=== PATIENT | female | born 1985 | race Caucasian/White ===

== ENCOUNTER 2017-03-14 15:07 | Emergency (ER) | payer SELFPAY ==
--- NOTE | 2017-03-14 15:47 | UC ---
Respiratory Complaint HPI - HPI Summary HPI Summary: 31 yo female with <24 hour hx of runny nose/fever/chills/cough/sore throat and severe myalgias no n/v/d no CP of SOB - History of Current Complaint Chief Complaint: UCGeneralIllness Stated Complaint: SORE THROAT,EAR PAIN,BODY ACHES Time Seen by Provider: 03/14/17 15:36 Hx Obtained From: Patient Hx Last Menstrual Period: Nexplanon Onset/Duration: Sudden Onset, Lasting Hours Timing: Constant Severity Initially: Moderate Severity Currently: Moderate Pain Intensity: 8 Pain Scale Used: 0-10 Numeric Character: Cough: Nonproductive Aggravating Factors: Nothing Alleviating Factors: Nothing Associated Signs And Symptoms: Positive: Fever, Chills, Nasal Congestion, Sinus Discomfort - Allergies/Home Medications Allergies/Adverse Reactions: Allergies Allergy/AdvReac Type Severity Reaction Status Date / Time No Known Allergies Allergy Verified 03/14/17 15:15 PMH/Surg Hx/FS Hx/Imm Hx Previously Healthy: Yes - Surgical History Surgical History: Yes Surgery Procedure, Year, and Place: right foot surgery at [facility] (tendon transfer) at age 14 yrs & AGE 17 - Family History Known Family History: Positive: Hypertension - Social History Alcohol Use: Weekly Alcohol Amount: 1-2 drinks/day Substance Use Type: None Smoking Status (MU): Heavy Every Day Tobacco Smoker Type: Cigarettes Amount Used/How Often: 1 ppd Length of Time of Smoking/Using Tobacco: 21 YEARS Have You Smoked in the Last Year: Yes - Immunization History Most Recent Influenza Vaccination: NONE 2016 Review of Systems Constitutional: Fever, Chills, Fatigue Skin: Negative Eyes: Negative ENT: Sore Throat, Nasal Discharge, Sinus Congestion Respiratory: Cough Cardiovascular: Negative Gastrointestinal: Negative Genitourinary: Negative Motor: Negative Neurovascular: Negative Musculoskeletal: Myalgia Neurological: Headache Psychological: Negative Is Patient Immunocompromised?: No All Other Systems Reviewed And Are Negative: Yes Physical Exam Triage Information Reviewed: Yes Appearance: Well-Appearing, No Pain Distress, Well-Nourished Vital Signs: Initial Vital Signs Temp 98 F 03/14/17 15:16 Pulse 89 03/14/17 15:16 Resp 16 03/14/17 15:16 BP 105/63 03/14/17 15:16 Pulse Ox 100 03/14/17 15:16 Vital Signs Reviewed: Yes Eyes: Positive: Conjunctiva Clear ENT: Positive: Hearing grossly normal, Pharyngeal erythema, Nasal congestion, Nasal drainage, TMs normal. Negative: Tonsillar swelling, Tonsillar exudate, Trismus, Muffled/hoarse voice Neck: Positive: Supple, Nontender, No Lymphadenopathy Respiratory: Positive: Lungs clear, Normal breath sounds, No respiratory distress Cardiovascular: Positive: RRR, No Murmur Musculoskeletal: Positive: ROM Intact, No Edema, Other: - surgical scars both legs Neurological: Positive: Alert Psychological Exam: Normal Skin Exam: Normal UC Diagnostic Evaluation - Laboratory Pertinent Lab Values Are: WNL - RS and RI negative O2 Sat by Pulse Oximetry: 100 - normal/ not hyhpoxic Respiratory Course/Dx - Differential Dx/Diagnosis Provider Diagnoses: acute bronchitis Discharge - Discharge Plan Condition: Stable Disposition: HOME Prescriptions: Amoxicillin PO (*) [Amoxicillin 875 MG (*)] 875 mg PO BID #14 tab Benzonatate CAP* [Tessalon CAP*] 100 - 200 mg PO TID PRN #28 cap PRN Reason: Cough Ibuprofen TAB* [Motrin TAB*] 600 mg PO Q6H PRN #40 tab PRN Reason: Pain Patient Education Materials: Acute Bronchitis (ED) Referrals: ANICETO Freire [Primary Care Provider] - 3 Days (if not better) Additional Instructions: to er for new or worsening symptoms
[2017-03-14 17:26] VITALS: BP 100/46
== END 2017-03-14 17:46 | disposition home or self-care (01) ==
LOC: UCCORT 15:07
DX: J20.9 Acute bronchitis, unspecified (principal); R09.81 Nasal congestion; F17.210 Nicotine dependence, cigarettes, uncomplicated
CPT/HCPCS: 87502; 87651; 99212; G0463

== ENCOUNTER 2017-05-01 10:39 | Emergency (ER) | payer SELFPAY ==
[2017-05-01 10:59] VITALS: BP 113/65
--- NOTE | 2017-05-01 11:22 | UC ---
Complaint Female HPI - HPI Summary HPI Summary: bad vaginal odor x 1 day. + vaginal discharge, pain no fever, no chills, - History Of Current Complaint Chief Complaint: UCGU Stated Complaint: PERSONAL Time Seen by Provider: 05/01/17 10:54 Hx Obtained From: Patient Hx Last Menstrual Period: 04/24/17 Onset/Duration: Gradual Onset, Lasting Days - 1, Still Present Timing: Constant Severity Initially: Moderate Severity Currently: Moderate Character: Cramping Alleviating Factor(s): Nothing Associated Signs And Symptoms: Positive: Vaginal Bleeding/Discharge, Vaginal Discharge. Negative: Back Pain, Nausea, Vomiting(# Of Episodes =), Genital Swelling, Genital Blisters, Retained Foregin Body (Specify) - Allergies/Home Medications Allergies/Adverse Reactions: Allergies Allergy/AdvReac Type Severity Reaction Status Date / Time No Known Allergies Allergy Verified 05/01/17 10:54 PMH/Surg Hx/FS Hx/Imm Hx Previously Healthy: Yes - Surgical History Surgical History: Yes Surgery Procedure, Year, and Place: right foot surgery at [facility] (tendon transfer) at age 14 yrs & AGE 17 - Family History Known Family History: Positive: Hypertension - Social History Alcohol Use: None Alcohol Amount: 1-2 drinks/day Substance Use Type: None Smoking Status (MU): Heavy Every Day Tobacco Smoker Type: Cigarettes Amount Used/How Often: 1 ppd Length of Time of Smoking/Using Tobacco: 21 YEARS Have You Smoked in the Last Year: Yes - Immunization History Most Recent Influenza Vaccination: NONE 2016 Review of Systems Constitutional: Negative Skin: Negative Eyes: Negative ENT: Negative Respiratory: Negative Cardiovascular: Negative Genitourinary: Vaginal/Penile Itching, Vaginal/Penile Discharge Is Patient Immunocompromised?: No All Other Systems Reviewed And Are Negative: Yes Physical Exam Triage Information Reviewed: Yes Appearance: Well-Appearing, No Pain Distress, Well-Nourished Vital Signs: Initial Vital Signs Temp 98 F 05/01/17 10:55 Pulse 86 05/01/17 10:55 Resp 14 05/01/17 10:55 BP 113/65 05/01/17 10:55 Pulse Ox 100 05/01/17 10:55 Vital Signs Reviewed: Yes Eyes: Positive: Conjunctiva Clear ENT: Positive: Normal ENT inspection, Hearing grossly normal, Pharynx normal Neck: Positive: Supple, Nontender, No Lymphadenopathy Respiratory: Positive: Chest non-tender, Lungs clear, Normal breath sounds Cardiovascular: Positive: RRR, No Murmur, Pulses Normal Abdomen Description: Positive: Nontender, Soft. Negative: CVA Tenderness (R), CVA Tenderness (L), Distended, Guarding Bowel Sounds: Positive: Present Skin Exam: Normal UC Physical Exam Vital Signs On Initial Exam: Initial Vitals Temp Pulse Resp BP Pulse Ox 98 F 86 14 113/65 100 05/01/17 10:55 05/01/17 10:55 05/01/17 10:55 05/01/17 10:55 05/01/17 10:55 - Genitalia Exam Female Genitourinary: Vagina without Blood/Discharge, Genitalia without Lesions/ Masses Complaint Female Dx - Differential Dx/Diagnosis Provider Diagnoses: vaginitis Discharge - Discharge Plan Condition: Stable Disposition: HOME Prescriptions: Metronidazole [Flagyl 500 MG TAB] 500 mg PO BID #14 tab Patient Education Materials: Bacterial Vaginosis (ED), Vaginitis (ED) Referrals: ANICETO Freire [Primary Care Provider] - 5 Days Additional Instructions: will check vaginal cultures call the office in 2 days for the results
[2017-05-01 14:25] LABS: Trichomonas Source Endocervical (Negative)
== END 2017-05-01 11:33 | disposition home or self-care (01) ==
LOC: UCCORT 10:39
DX: N76.0 Acute vaginitis (principal); F17.210 Nicotine dependence, cigarettes, uncomplicated
CPT/HCPCS: 81003; 87077; 87086; 87186; 87480; 87491; 87510; 87591; 87661; 99212; G0463

== ENCOUNTER 2017-05-31 16:48 | Emergency (ER) | payer MEDICAID ==
[2017-05-31 17:07] VITALS: BP 112/71
== END 2017-05-31 17:53 | disposition left against medical advice (07) ==
LOC: UCCORT 16:48
DX: N89.8 Other specified noninflammatory disorders of vagina (principal); L65.9 Nonscarring hair loss, unspecified; Z53.21 Procedure and treatment not carried out due to patient leaving prior to being seen by health care provider

== ENCOUNTER 2017-07-18 20:48 | Emergency (ER) | payer MEDICAID ==
--- OUTSIDE RECORDS SUMMARY | 2017-07-18 21:05 | XMS REPORT ---
:1985 External Reference #:[id number] Author Organization [facility] Address [address] [address] Phone [phone] Care Team Providers Name Role Phone Karla Sher FNP Primary Care Physician Unavailable Payers Type Date Identification Numbers Payment Provider Subscriber Commercial Policy Number: [id number] [employer] [employer] [facility] Liz Mcgee PayID: [id number] [address] [address] [place] [address] Problems Description No Information Social History Type Date Description Comments Occupation Unemployed ETOH Use Denies alcohol use Smoking Heavy tobacco smoker (more than 10 cigarettes/day) Allergies, Adverse Reactions, Alerts Date Description Reaction Status Severity Comments 12/19/2015 NKDA active Medications Medication Date Status Form Strength Qnty SIG Indications Ordering Provider Compression 03/28/ Active Misc 1unit 40-50 mmhg Bob Huff 2015 s compression maliha Flynn M.D. knee high Ibuprofen / Active Tablets 200mg 4 po as Unknown 0000 needed Wellbutrin SR / Active Tablets ER 200mg 1 by mouth Unknown 0000 12HR daily Hydroxyzine / Active Tablets 50mg 1 po at Unknown Pano 0000 bedtime prn Gabapentin / Active Capsules 300mg 1 by mouth Unknown 0000 three times a day Topiramate / Active Tablets 50mg 1 tab po Unknown 0000 twice a day Prazosin HCL 00/ Active Capsules 2mg 1 capsule Unknown 0000 every night at bedtime Melatonin / Active Capsules 10mg 3 tab by Unknown 0000 mouth at bedtime as needed for insomnia Bactrim DS 02/05/ Hx Tablets 800-160mg 30tab 1 by mouth M67.01 Bob 2016 Dewey s twice a day Gee 10/01Elsa Sandoval 2017 Bactrim DS 01/29/ Hx Tablets 800-160mg 30tab 1 by mouth M67.01 Bob 2016 - s twice a day Gee Lori 2015 Oxycodone HCL 01/07/ Hx Tablets 5mg 30tab 1 tab by Bob 2016 - s mouth every Gee, hours as M.D. 2017 needed Nortriptyline / Hx Capsules 25mg Unknown HCL - 2015 Gabapentin / Hx Capsules 100mg Unknown 0000 - 2015 Meloxicam / Hx Tablets 15mg Maverick 0000 - Amee 01/28/ MD 2015 Bupropion HCL / Hx Tablets ER 150mg Take Two Unknown ER (XL) 0000 - 24HR Tablets By 04/08/ Mouth Every 2016 Day Meloxicam / Hx Tablets 7.5mg Take One Unknown 0000 - Tablet By 04/08/ Mouth Twice 2017 A Day Topiramate / Hx Tablets 100mg 1 po qday Unknown - 2016 Prazosin HCL / Hx Capsules 1mg 1 po qday Unknown - 2016 Vital Signs Date Vital Result Comment 07/02/2017 Height 66 inches 5'6" Heart Rate 56 /min BP Systolic 104 mmHg BP Diastolic 68 mmHg Respiratory Rate 16 /min Body Temperature 98.3 F Pain Level 9 O2 % BldC Oximetry 98 % 04/16/2017 Height 66 inches 5'6" Weight 160.00 lb Heart Rate 76 /min BP Systolic Sitting 126 mmHg BP Diastolic Sitting 74 mmHg Respiratory Rate 16 /min Pain Level 9 worse at night BMI (Body Mass Index) 25.8 kg/m2 04/09/2017 Height 66 inches 5'6" Heart Rate 72 /min BP Systolic Sitting 100 mmHg BP Diastolic Sitting 68 mmHg Respiratory Rate 20 /min Pain Level 7 O2 % BldC Oximetry 98 % 10/02/2016 Height 66 inches 5'6" Weight 190.00 lb Heart Rate 68 /min BP Systolic Sitting 114 mmHg BP Diastolic Sitting 72 mmHg Respiratory Rate 16 /min Pain Level 0 BMI (Body Mass Index) 30.7 kg/m2 07/17/2016 Height 66 inches 5'6" Weight 190.00 lb BMI (Body Mass Index) 30.7 kg/m2 05/29/2016 Height 66 inches 5'6" Weight 190.00 lb BP Systolic Sitting 108 mmHg BP Diastolic Sitting 68 mmHg Pain Level 9 BMI (Body Mass Index) 30.7 kg/m2 03/12/2016 Height 66 inches 5'6" Weight 190.00 lb Heart Rate 74 /min BP Systolic 124 mmHg BP Diastolic 66 mmHg Pain Level 8 BMI (Body Mass Index) 30.7 kg/m2 02/20/2016 Height 66 inches 5'6" Weight 190.00 lb Heart Rate 78 /min BP Systolic 122 mmHg BP Diastolic 64 mmHg Pain Level 8 BMI (Body Mass Index) 30.7 kg/m2 02/14/2016 Height 66 inches 5'6" Weight 190.00 lb BMI (Body Mass Index) 30.7 kg/m2 02/13/2016 Weight 190.00 lb Heart Rate 74 /min Respiratory Rate 16 /min 02/09/2016 Weight 185.00 lb 02/06/2016 Weight 185.00 lb Heart Rate 76 /min BP Systolic Sitting 122 mmHg BP Diastolic Sitting 76 mmHg 01/30/2016 Height 66 inches 5'6" Weight 185.00 lb BP Systolic Sitting 120 mmHg BP Diastolic Sitting 70 mmHg BMI (Body Mass Index) 29.9 kg/m2 01/22/2016 Height 66 inches 5'6" Weight 190.00 lb Pain Level 3 BMI (Body Mass Index) 30.7 kg/m2 01/18/2016 Height 66 inches 5'6" Weight 190.00 lb Body Temperature 98.1 F Pain Level 3 BMI (Body Mass Index) 30.7 kg/m2 12/19/2015 Height 66 inches 5'6" Weight 190.00 lb Heart Rate 88 /min BP Systolic Sitting 124 mmHg BP Diastolic Sitting 88 mmHg BMI (Body Mass Index) 30.7 kg/m2 Results Test Date Test Result H/L Range Note Laboratory test finding 01/08/2016 (HCG) Urine Negative Negative 1 1 If is still suspected, please repeat test after 48 to 72 hours. This test detects intact HCG only and is indicated for the early detection of . Procedures Date CPT Code Description Status 02/14/2016 22059 Walking Cast Completed 02/13/2016 26831 Short Leg Cast Completed 02/09/2016 27142 Short Leg Cast Completed 02/06/2016 15508 Walking Cast Completed 01/30/2016 61444 Short Leg Cast Completed 01/22/2016 15548 Short Leg Cast Completed 01/18/2016 75253 Short Leg Cast Completed 01/08/2016 44452 Lengthening Or Shortening Tendon,Leg,Ankle Single Completed Tendon 01/08/2016 71169 Lengthening Or Shortening Tendon,Leg,Ankle Single Completed Tendon 12/19/2015 55140 Rad Exam; Ankle Limited Completed Encounters Type Date Location Provider CPT E/M Dx Office Visit 04/16/2017 [facility] 42399 M67.01 [facility]2017 [facility] 94730 M67.01 2:[facility] 10/02/2016 [facility] 84901 G57.81 10:30a [facility] Office Visit 07/17/2016 11:00a [facility] 59118 G57.81 [facility] Office Visit 05/29/2016 10:20a [facility] 26685 M67.01 [facility] Office Visit 12/19/2015 10:00a [facility] 87135 G57.81 [facility] Future Appointment(s):07/16/2017 9:15 am - Bob Flynn M.D. at [facility]/08/2018 1:45 pm - TANK Agosto at [facility]07/07/2017 1:45 pm - [facility]
[2017-07-18 21:12] VITALS: BP 114/71
--- NOTE | 2017-07-18 21:13 | UC ---
Lower Extremity/Ankle HPI - HPI Summary HPI Summary: Pt presents with c/o of right foot pain. Pt has history of trauma to foot and and right lower extremity and achilles lengthing surgery. Now has cast on right lower extremity not post surgical. Pt was supposed to have cast removed on 07/16/17 but was unable to go to doctors appointment. Pt states that cast is "digging into ball of right foot". - History of Current Complaint Stated Complaint: RIGHT FOOT COMPLAINT Time Seen by Provider: 07/18/17 20:54 Hx Obtained From: Patient Hx Last Menstrual Period: 07/17/17 ?: No Onset/Duration: Gradual Onset, Lasting Days, Worse Since - initial onset Severity Initially: Mild Severity Currently: Moderate Aggravating Factor(s): Standing, Ambulation Alleviating Factor(s): Nothing Able to Bear Weight: No - Risk Factors Gout Risk Factors: Negative DVT Risk Factors: Negative Septic Arthritis Risk Factor: Negative - Allergies/Home Medications Allergies/Adverse Reactions: Allergies Allergy/AdvReac Type Severity Reaction Status Date / Time No Known Allergies Allergy Verified 07/18/17 21:04 PMH/Surg Hx/FS Hx/Imm Hx Previously Healthy: Yes - Surgical History Surgical History: Yes Surgery Procedure, Year, and Place: right foot surgery at [facility] (tendon transfer) at age 14 yrs & AGE 17; right leg surgery scheduled 06/16/17 - Family History Known Family History: Positive: Hypertension - Social History Occupation: Unemployed Lives: With Family Alcohol Use: Occasionally Alcohol Amount: 2 Substance Use Type: Other Substance Use Comment - Amount & Last Used: crack cocaine and meth, heroin- stopped 3 months ago Smoking Status (MU): Heavy Every Day Tobacco Smoker Type: Cigarettes Amount Used/How Often: 1 ppd Length of Time of Smoking/Using Tobacco: 21 YEARS Have You Smoked in the Last Year: Yes - Immunization History Most Recent Influenza Vaccination: NONE 2016 Review of Systems Constitutional: Negative Skin: Other - blister, odiferous wound, tenderness right ball of foot. unable to see inside cast Eyes: Negative ENT: Negative Respiratory: Negative Cardiovascular: Negative Gastrointestinal: Negative Genitourinary: Negative Motor: Negative Neurovascular: Negative Musculoskeletal: Arthralgia - rigth foot, Decreased ROM - right foot secondary to cast, Myalgia Neurological: Negative Psychological: Negative Is Patient Immunocompromised?: No All Other Systems Reviewed And Are Negative: Yes Physical Exam Triage Information Reviewed: Yes Appearance: Well-Appearing, Other: - unkempt Vital Signs: Initial Vital Signs Temp 97.6 F 07/18/17 21:05 Pulse 77 07/18/17 21:05 Resp 18 07/18/17 21:05 BP 114/71 07/18/17 21:05 Vital Signs Reviewed: Yes Eye Exam: Normal ENT Exam: Normal Neck exam: Normal Respiratory Exam: Normal Cardiovascular Exam: Normal Musculoskeletal Exam: Other Musculoskeletal: Positive: Other: - right foot in cast, pt ambulates with right foot turned outward Neurological Exam: Normal Psychological Exam: Normal Skin Exam: Other - right foot, ball of foot, tenderness, odiferous, large blister and unable to see inside cast Lower Extremity Course/Dx - Course Course Of Treatment: I spoke to the pt about having the cast removed and that we do not have a cast cutter at the facility. I phoned [facility] and spoke with Dr. Bronson. Dr. bronson stated that they would be able to remove the cast. Pt stated that she did not want to go to Emergency room tonight and might go tomorrow. I recommended that the pt seek care as soon as possible. Pt stated she did not have a phone and does not have access to transportation. - Differential Dx/Diagnosis Differential Diagnosis/HQI/PQRI: Infection Provider Diagnoses: right foot pain. possible skin infection secondary to cast Discharge - Discharge Plan Condition: Stable Disposition: HOME Patient Education Materials: Arthralgia (ED), Cast Care (ED) Referrals: ANICETO Freire [Primary Care Provider] -
[2017-07-18] MEDS ORDERED: Ibuprofen TAB* 400 MG PO ONE (21:41)
== END 2017-07-18 21:48 | disposition home or self-care (01) ==
LOC: UCCORT 20:48
DX: M79.671 Pain in right foot (principal); S91.301D Unspecified open wound, right foot, subsequent encounter; F17.210 Nicotine dependence, cigarettes, uncomplicated; Z98.890 Other specified postprocedural states; X58.XXXD Exposure to other specified factors, subsequent encounter
CPT/HCPCS: 99212; A9270-GY; G0463

== ENCOUNTER → 2017-08-18 | Day surgery (SDC) | payer OTHER ==
[~2017-08-18] MED LIST: Buffered Lidocaine 0.9% SYRIN* 5 ML/SYR SYRINGE INTRADERM ONE; Buffered Lidocaine 0.9% SYRIN* 5 ML/SYR SYRINGE ONE; Bupivacaine 0.5% SDV PF* 10-30ML VIAL ONE; Dexamethasone IV* 4 MG/ML 1 ML (4 MG) ONE; DiMENhydriNATE IV* 50 MG/ML VIAL IV PUSH PRN; Ketorolac INJ* 30 MG/ML 1 ML VIAL IV PRN; Ketorolac INJ* 30 MG/ML 1 ML VIAL ONE; Lidocaine 2% PF * 5 ML VIAL ONE; Lidocaine 2% PF* 10 ML AMP ONE; Naloxone* 0.4 MG/ML 1 ML VIAL IV PRN; Propofol* 10 MG/ML 20 ML BTL IV PUSH ONE; Sodium Citrate/Citric Acid* 15 ML UDC ONE; Sodium Citrate/Citric Acid* 15 ML UDC PO ONE; ceFAZolin* 2 GM in NS 100 MLS Q8HR IVPB ONE; fentaNYL* 50 MCG/ML 2 ML VIAL (100 MCG VIAL) IV PRN; fentaNYL* 50 MCG/ML 2 ML VIAL (100 MCG VIAL) ONE
[2017-08-18 17:09] VITALS: BP 107/68
--- NOTE | 2017-08-19 11:15 | OP ---
DATE OF OPERATION: 08/18/17 - [facility] DATE OF : 89 SURGEON: Bob Flynn MD. ASSISTANTS: Lalitha Anderson PA-C and Jaswinder Alfredo PA-C. 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 OPERATIVE PROCEDURE: Achilles lengthening and also Z lengthening of FDL and FHL tendons. DESCRIPTION OF PROCEDURE: The patient was taken to the operating room, where intraoperatively I examined the contracture of the Achilles and at a neutral position when the patient was asleep, it is quite obvious that her FDL and FHL tendons were significantly contracted. We then elected to lengthen these as well. A longitudinal incision was made from the navicular medially up to the mid portion of the distal Achilles We opened up the sheath over the FDL and FHL tendons and performed Z lengthening of both, repairing them with 2-0 Vicryl sutures. The FHL more or less end-to-end and the FDL tendon [id number]. There was no contracture to the posterior tibial tendon. The Achilles was isolated proximally at approximately 7 to 8 cm in length, this also had a Z lengthening performed and then with the ankle in slight dorsiflexion, I repaired side to side with 0 Vicryl sutures. We irrigated all wounds, closing the subcutaneous tissue with 2-0 Vicryls, arti for the skin and a compression dressing and plaster splint was applied. [id number]/[facility] #: [id number] MTDD
== END | disposition home or self-care (01) ==
LOC: OR 12:01
PROVIDERS: ATTEND Orthopaedic Surgery
DX: M67.01 Short Achilles tendon (acquired), right ankle (principal); M62.471 Contracture of muscle, right ankle and foot; Z87.828 Personal history of other (healed) physical injury and trauma; F17.210 Nicotine dependence, cigarettes, uncomplicated
CPT/HCPCS: 81025; A9270-GY; J0690; J1100; J1885; J2001; J2704; J3010

== ENCOUNTER 2018-03-11 13:49 | Emergency (ER) | payer OTHER ==
--- NOTE | 2018-03-11 15:13 | UC ---
UC General HPI - HPI Summary HPI Summary: Patient presents complaining of "girly infection" x 2 weeks which she describes as a discharge with an odor. She states that she's had the same partner for a long time. She denies having any sores or lesions. She also reports she has felt not well for 4 days which she describes as kind of a fatigue. She also reports having history of irregularly and sometimes prolonged menses. LMP now x 1 month. She states today she felt dizzy and lightheaded. She has no abdominal pain or fever. Patient states that she was at the ER but left because they were so rude and mean. - History of Current Complaint Stated Complaint: PERSONAL Time Seen by Provider: 03/11/18 15:01 Hx Obtained From: Patient Hx Last Menstrual Period: 07/17/17 Onset/Duration: Sudden Onset Timing: Constant Aggravating: nothing Alleviating: nothing Associated Signs & Symptoms: Positive: Diarrhea. Negative: Abdominal Pain, Dysuria, Fever, Vomiting - Allergy/Home Medications Allergies/Adverse Reactions: Allergies Allergy/AdvReac Type Severity Reaction Status Date / Time No Known Allergies Allergy Verified 03/11/18 15:08 PMH/Surg Hx/FS Hx/Imm Hx Previously Healthy: Yes - Surgical History Surgical History: Yes Surgery Procedure, Year, and Place: right foot surgery at [facility] (tendon transfer) at age 14 yrs & AGE 17; right leg 12/2015 - Family History Known Family History: Positive: Hypertension - Social History Occupation: Unemployed Lives: With Family Alcohol Use: Rare Alcohol Amount: 2 Substance Use Type: None Substance Use Comment - Amount & Last Used: DENIES Smoking Status (MU): Heavy Every Day Tobacco Smoker Type: Cigarettes Amount Used/How Often: 5-15 CIGARETTES PER DAY X 22 YEARS Length of Time of Smoking/Using Tobacco: 21 YEARS Have You Smoked in the Last Year: Yes - Immunization History Most Recent Influenza Vaccination: NONE 2017 Vaccination Up to Date: Yes Review of Systems Constitutional: Other - malaise Skin: Negative Eyes: Negative ENT: Negative Respiratory: Negative Cardiovascular: Negative Gastrointestinal: Diarrhea Genitourinary: Vaginal/Penile Discharge Motor: Negative Neurovascular: Negative Musculoskeletal: Negative Neurological: Negative Psychological: Negative Is Patient Immunocompromised?: No All Other Systems Reviewed And Are Negative: Yes Physical Exam Triage Information Reviewed: Yes Appearance: Well-Appearing Vital Signs Reviewed: Yes Eyes: Positive: Conjunctiva Clear ENT: Positive: Pharynx normal, TMs normal. Negative: Nasal congestion, Nasal drainage Neck: Positive: Supple, Nontender, No Lymphadenopathy Respiratory: Positive: Lungs clear, Normal breath sounds Cardiovascular: Positive: RRR, No Murmur Abdomen Description: Positive: Nontender, No Organomegaly, Soft. Negative: CVA Tenderness (R), CVA Tenderness (L), Distended, Guarding Bowel Sounds: Positive: Present Pelvic Exam: Positive: Other - No external lesions or discharge. On speculum exam, there is a scant amount of brown discharge at the os plus fishy odor. Cultures obtained. No adnexal or uterine mass or CMT on bimanual exam. Musculoskeletal: Positive: ROM Intact Neurological: Positive: Alert Psychological: Positive: Age Appropriate Behavior Skin Exam: Normal Diagnostics - Laboratory Diagnostic Studies Completed/Ordered: U/A=blood(vaginal spotting). hcg=neg. Course/Dx - Course Course Of Treatment: u/a= unremarkable except blood but pt is spotting. HGC= neg. pelvic culture pending but will tx for presumptive BV. Orthostatic VS= mild increase in HR but BP stable. Pt may be anemic; however, pt not willing to go back to ER for labs. She also notes she has been d/c from [facility] for non payment and by Ms Sher for missing appoinments. thus will refer to [facility]. - Differential Dx - Multi-Symptom Provider Diagnoses: Bacterial vaginosis. Vaginal Bleeding (spotting). possible anemia. Discharge - Sign-Out/Discharge Documenting (check all that apply): Patient Departure All imaging exams completed and their final reports reviewed: No Studies - Discharge Plan Condition: Stable Disposition: HOME Prescriptions: metroNIDAZOLE [Flagyl] 500 mg PO BID 7 Days #14 tablet Patient Education Materials: Bacterial Vaginosis (ED), Dysfunctional Uterine Bleeding (ED) Referrals: [facility] [Outside] - 1 Day - Billing Disposition and Condition Condition: STABLE Disposition: Home
[2018-03-11 16:08] VITALS: BP 108/72
== END 2018-03-11 16:23 | disposition home or self-care (01) ==
LOC: UCCORT 13:49
DX: N76.0 Acute vaginitis (principal); B96.89 Other specified bacterial agents as the cause of diseases classified elsewhere; F17.210 Nicotine dependence, cigarettes, uncomplicated; N93.9 Abnormal uterine and vaginal bleeding, unspecified
CPT/HCPCS: 81003; 84702; 87480; 87491; 87510; 87591; 87661; 99213; G0463